=== PATIENT | male | born 1945 | race Caucasian/White ===

== ENCOUNTER 2016-11-22 09:41 | Day surgery (SDC) | payer MEDICARE, OTHER ==
[2016-11-21 09:51] LABS: HEMATOCRIT 42.7 % (40.0-51.0)
[2016-11-21 10:05] LABS: BUN (BLOOD UREA NITROGEN) 18 MG/DL (6-23); CALCIUM, SERUM 8.9 MG/DL (8.5-10.4); CHLORIDE, SERUM 107 MMOL/L (96-112); CO2 (CARBON DIOXIDE) 28 MMOL/L (24-34); CREATININE 0.68 MG/DL (0.70-1.30); GFR AFRICAN AMERICAN 113 ML/MIN (>=60); GFR NON AFRICAN AMERICAN 97 ML/MIN (>=60); GLUCOSE, SERUM 89 MG/DL (60-99); POTASSIUM, SERUM 3.9 MMOL/L (3.5-5.3); SODIUM, SERUM 141 MMOL/L (135-148)
--- NOTE | ~2016-11-22 | OP ---
Record Of Operation [facility] [address] [place]. [address] NAME: KASI CONDE : 49 STATUS : [facility] PAT#: [id number] AGE: 71 ADM/REG DATE : 11/22/16 MR#: [id number] REPORT SERV DATE: 11/22/16 DICTATED BY: CAESAR PARKS III DATE: 11/22/16 REPORT STATUS : Draft TRANSCRIBED BY: MODRakesh DATE: 11/22/16 DATE OF PROCEDURE: 11/22/2016 PREOPERATIVE DIAGNOSIS: Bilateral carpal tunnel syndrome upper extremities. POSTOPERATIVE DIAGNOSIS: Bilateral carpal tunnel syndrome upper extremities. SURGICAL PROCEDURE PERFORMED: Bilateral carpal tunnel releases, left and right wrist. SURGEON: Caesar Parks M.D. DINKEY OPERATOR: Sade Mcintosh. ANESTHESIA: General. ANTIBIOTICS: Ancef 2 g. COMPLICATIONS: None. TOURNIQUET TIME ON THE LEFT: 9 minutes. TOURNIQUET TIME ON THE RIGHT: 9 minutes. ESTIMATED BLOOD LOSS: Zero. COMPLICATIONS: None. PROCEDURE IN DETAIL: The patient was brought to the operative room, placed on the table in supine position and general anesthesia was induced. 2 g was administered intravenously in the operating room. Both upper extremities were prepped and draped in the usual sterile fashion. Attention was turned toward the left side 1st, it was exsanguinated with an Esmarch and the tourniquet was inflated to 250 mmHg. Assuring good anesthesia, a curvilinear incision was made over the base of the thenar eminence for approximately 3/4 to 1 inch. Dissection was carried down to the antebrachial fascia. A small self-retaining Heiss retractor was placed in the wound. Dissection was carried down to transverse carpal ligament to identify the median nerve. It was then protected with a small Swanlake, and the ligament was transected from distal to proximal undermining the flexor crease of the wrist. Contents of the canal were explored. There were no extrinsic masses. The nerve appeared to be in good condition with no hyperemic changes. Thorough irrigation was carried out and the skin was closed with interrupted 3-0 nylon. Soft tissue dressing was applied and 10 mL of 0.5% Marcaine solution was injected into the wound. The tourniquet was released after 9 minutes. Attention was turned towards the right side, it was exsanguinated with an Esmarch. Tourniquet was inflated to 250 mmHg. Assuring good anesthesia, a curvilinear incision was made over the base of the thenar eminence for about an inch. Self-retaining Heiss retractor Record Of Operation [facility] [address] [place]. [address] NAME: KASI CONDE : 49 STATUS : [facility] PAT#: [id number] AGE: 71 ADM/REG DATE : 11/22/16 MR#: [id number] REPORT SERV DATE: 11/22/16 DICTATED BY: CAESAR PARKS III DATE: 11/22/16 REPORT STATUS : Draft TRANSCRIBED BY: MODL DATE: 11/22/16 was placed in the wound. The antebrachial fascia was incised. Transverse carpal ligament was dissected down to identify the median nerve. It was protected with a Swanlake and the carpal ligament was transected from distal to proximal undermining the ligament at the flexor crease of the wrist. Contents of the canal were explored. There were no extrinsic masses. The median nerve appeared to be in good condition with no hyperemic changes. Thorough irrigation was carried out. The skin was closed with interrupted 3-0 nylon. Sterile dressings were applied. 10 mL of 0.5% Marcaine solution was injected as well. The tourniquet was released after 9 minutes. The patient tolerated the procedure well and brought to recovery room in satisfactory condition. There were no intraoperative, postoperative, or anesthetic complications. All instrument, needle, sponge, and lap counts were correct. TB/GABRIELLAL Caesar Parks III, M.D. / [id number] CC: Jose Wray III, MIRANDA SWAFFORD
[~2016-11-22 09:41] MED LIST: COZ50 PO; NEUR800 PO; NORCO1 TA2
== END 2016-11-22 23:59 | disposition home or self-care (01) ==
LOC: MSC 09:41
PROVIDERS: Orthopaedic Surgery
PROC: 01N50ZZ Release Median Nerve, Open Approach (ICD-10-PCS; 2016-11-22)
PROC: 01N50ZZ Release Median Nerve, Open Approach (ICD-10-PCS; principal; 2016-11-22 11:15)
DX: G56.03 Carpal tunnel syndrome, bilateral upper limbs (principal); I10 Essential (primary) hypertension; Z79.891 Long term (current) use of opiate analgesic; Z79.899 Other long term (current) drug therapy; Z90.49 Acquired absence of other specified parts of digestive tract; Z85.46 Personal history of malignant neoplasm of prostate; Z98.890 Other specified postprocedural states
CPT/HCPCS: 80048; 85014; 85018; 93005; A9270-GY; J0360; J0690; J2250; J2405; J3010